=== PATIENT | female | born 1995 | race Two or more races ===

== ENCOUNTER 2022-11-04 17:34 | Emergency (ER) | payer MEDICAID ==
[~2022-11-04] VITALS: Ht 162.6 cm; Wt 88.5 kg
--- NOTE | 2022-11-04 18:00 | NUR ---
Pt was triaged and ambulated back to ER waiting room, no ER beds available at this time.
--- NOTE | 2022-11-04 19:50 | NUR ---
Placed in room 3 at this time.
[2022-11-04 20:22] LABS: HEMATOCRIT 40.1 % (31.2-41.9); MEAN CORPUSCULAR HEMOGLOBIN 28.1 uug (24.7-32.8); MEAN CORPUSCULAR VOLUME 83.9 fL (75.5-95.3); PLATELET COUNT (AUTO) 389 K/uL (179-408)
[2022-11-04 20:32] LABS: CARBON DIOXIDE 26 mmol/L (21-32); CHLORIDE 102 mmol/L (98-107); CREATININE 0.9 mg/dL (0.6-1.3); GLUCOSE 97 mg/dL (74-106); POTASSIUM 3.6 mmol/L (3.5-5.1); UREA NITROGEN, BLOOD 12 mg/dL (7-18)
[2022-11-04 20:40] LABS: ALANINE AMINOTRANSFERASE 13 U/L (14-59); ALKALINE PHOSPHATASE 97 U/L (50-136); ASPARTATE AMINOTRANSFERASE 8 U/L (15-37); BILIRUBIN,DIRECT 0.1 mg/dL (0.0-0.2); BILIRUBIN,TOTAL 0.2 mg/dL (0.2-1.0); TOTAL PROTEIN, SERUM 8.4 g/dL (6.4-8.2)
[2022-11-04] MEDS ORDERED: OXYCODONE/APAP 5-325 MG TABLET PO ONE (21:00)
[2022-11-04] MEDS ORDERED: HYDR-3980 PO (21:06)
[2022-11-04] MEDS ORDERED: OXYCODONE/APAP 5-325 MG TABLET ONE (21:07)
--- NOTE | 2022-11-04 21:31 | NUR ---
Patient discharged to home in stable condition. Written and verbal after care instructions given. Patient verbalizes understanding of instructions. Stressed follow up or return to ER for worsening s/s. Patient is a/ox4, NAD noted. Patient able to walk with steady gait
[2022-11-04 21:34] VITALS: BP 130/87
== END 2022-11-04 21:34 | disposition home or self-care (01) ==
LOC: ER 17:34
DX: R55 Syncope and collapse (principal); M54.50 Low back pain, unspecified; R07.89 Other chest pain; F17.210 Nicotine dependence, cigarettes, uncomplicated; Z79.899 Other long term (current) drug therapy; W01.0XXA Fall on same level from slipping, tripping and stumbling without subsequent striking against object, initial encounter; Y93.89 Activity, other specified; Y92.89 Other specified places as the place of occurrence of the external cause; Y99.8 Other external cause status
CPT/HCPCS: 36415; 71045; 83605; 83735; 84484; 85025; 85730; 93005; A4663